=== PATIENT | female | born 1945 | race Caucasian/White ===

== ENCOUNTER 2020-11-30 08:19 | Inpatient (IN) ==
[2020-11-30] MEDS ORDERED: Ondansetron 4 MG/2 ML VIAL IVP ONE (08:25)
[2020-11-30] MEDS ORDERED: 0.9 % Sodium Chloride 500 ML IVC ONE (08:25)
[2020-11-30] MEDS ORDERED: Piperacillin/Tazobactam 3.375 GM in 0.9 % Sodium Chloride Mini Bag 100 ML IVPB ONE (08:27)
[2020-11-30 08:42] LABS: Bilirubin,Urine Small (Negative); Blood,Urine Moderate (Negative); Clarity,Urine Clear (Clear); Color,Urine Yellow (Yellow); Glucose,Urine (UA) Normal (Normal); Ketones,Urine >=160 mg/dL (Negative); Leukocyte Esterase,Urine Negative (Negative); Nitrite,Urine Negative (Negative); Protein,Urine 100 mg/dL (Neg-Trace); Specific Gravity,Urine >= 1.030 (1.010-1.025); Urobilinogen,Urine Normal (Normal)
[2020-11-30 08:49] LABS: Basophils # 0.1 K/mcL (0.0-0.2); Basophils % 0.5 %; Hematocrit 43.3 % (35.3-44.9); Hemoglobin 14.5 g/dL (11.5-15.4); Immature Granulocytes % 0.4 % (0-4); Lymphocytes # 0.9 K/mcL (0.6-4.6); Lymphocytes % 8.3 %; Mean Corpuscular HGB Conc 33.5 g/dL (31.6-35.5); Mean Corpuscular Hemoglobin 28.1 pg (28.0-33.3); Mean Corpuscular Volume 83.9 fL (83.0-100.0); Mean Platelet Volume 10.4 fL (9.4-12.4); Monocytes % 7.5 %; Neutrophils # 9.4 K/mcL (1.6-8.9); Platelet Count 230 K/mcL (140-400); Red Blood Count 5.16 M/mcL (3.82-4.97); Red Cell Distribution Width 14.1 % (11.5-14.5); Segmented Neutrophils % 83.3 %; White Blood Count 11.3 K/mcL (4.3-11.1)
[2020-11-30 08:51] LABS: WBC,Urine 0-3 per hpf (0-3)
[2020-11-30] MEDS ORDERED: Acetaminophen 325 MG TABLET PO ONE (08:51)
[2020-11-30 08:52] LABS: Bacteria,Urine Many per hpf (None-Few); Granular Casts,Urine Moderate per lpf (None Seen); Mucus,Urine Few per lpf (None-Few); Red Blood Cell Casts,Urine Few per lpf (None Seen)
[2020-11-30 08:53] LABS: Monocytes # 0.9 K/mcL (0.0-1.3)
[2020-11-30 08:53] LABS: Amphetamine Screen,Urine Negative ng/mL (Cutoff=1000); Barbiturate Screen,Urine Negative ng/mL (Cutoff=200); Benzodiazepines Screen,Urine Negative ng/mL (Cutoff=200); Cannabinoid Screen,Urine Positive ng/mL (Cutoff = 50); Cocaine Screen,Urine Negative ng/mL (Cutoff= 300); Opiate Screen,Urine Positive ng/mL (Cutoff=300); Phencyclidine Screen,Urine Negative ng/mL (Cutoff=25)
[2020-11-30 08:57] LABS: INR 1.4; Prothrombin Time 15.7 Seconds (9.4-12.1)
[2020-11-30 09:00] LABS: Activated Partial Thrombo Time 37.9 Seconds (26.0-36.0)
[2020-11-30 09:05] LABS: Alanine Aminotransferase 53 Units/L (7-52); Albumin 3.8 g/dL (3.5-5.7); Albumin/Globulin Ratio 0.9 (1.1-2.2); Alkaline Phosphatase 209 Units/L (34-104); Aspartate Amino Transferase 72 Units/L (13-39); BUN/Creatinine Ratio 14 (6-26); Bilirubin,Direct 0.4 mg/dL (0.0-0.2); Bilirubin,Indirect 0.6 mg/dL (0.0-1.0); Blood Urea Nitrogen 14 mg/dL (8-23); Carbon Dioxide 23 mEq/L (23-29); Chloride 101 mEq/L (98-107); Globulin 4.1 g/dL (2.4-3.5); Glucose 128 mg/dL (70-105); Osmolality,Calculated 288 (280-300); Potassium 3.1 mEq/L (3.5-5.1); Sodium 138 mEq/L (136-145); Total Protein 7.9 g/dL (6.4-8.9); eGFR For African Americans > 60 (> 60); eGFR For Non-African Americans 53 (> 60)
[2020-11-30 09:15] LABS: Troponin I 0.05 ng/mL (< 0.04)
[2020-11-30] MEDS: 0.9 % Sodium Chloride 1,000 ML IVC SCH ×2 (09:20→20:55)
[2020-11-30 10:22] LABS: ABG Base Excess -2 mEq/L (-2 to 3); ABG HCO3 20 mEq/L (21-27); ABG Oxygen Saturation 92 % (95-98); ABG PCO2 27 mmHg (35-45); ABG PH 7.47 pH Units (7.32-7.45); ABG PO2 57 mmHg (85-104); ABG TCO2 21 mEq/L (20-26)
[2020-11-30] MEDS ORDERED: *HR* HYDROcodone/Acet 5/325 mg TABLET PO ONE (10:24)
[2020-11-30] MEDS ORDERED: Isovue-370 500 ML BOTTLE IVP ONE (11:29)
[2020-11-30] MEDS ORDERED: MOM Conc 10 ML UD.LIQ PO PRN (11:34)
[2020-11-30] MEDS ORDERED: Naloxone 0.4 MG/ML INJ IVP PRN (11:34)
[2020-11-30] MEDS ORDERED: Mag Hydrox/Al Hydrox/Simeth 30 ML UDC PO PRN (11:34)
[2020-11-30] MEDS ORDERED: Ondansetron 4 MG/2 ML VIAL IVP PRN (11:34)
[2020-11-30] MEDS ORDERED: Ipratropium 1 PUFF INHALER IH PRN (13:58)
[2020-11-30 15:56] LABS: Adenovirus Not Detected (Not Detect); Coronavirus 229E Not Detected (Not Detect); Coronavirus HKU1 Not Detected (Not Detect); Coronavirus NL63 Not Detected (Not Detect); Coronavirus OC43 Not Detected (Not Detect); Human Metapneumovirus Not Detected (Not Detect); Human Rhinovirus/Enterovirus Not Detected (Not Detect); Influenza A Subtype 2009 H1 Not Detected (Not Detect); SARS-CoV-2 Not Detected (Not Detect)
[2020-11-30 15:57] LABS: Bordetella Pertussis Not Detected (Not Detect); Chlamydophila pneumoniae Not Detected (Not Detect); Influenza B Not Detected (Not Detect); Mycoplasma pneumoniae Not Detected (Not Detect); Parainfluenza Virus 1 Not Detected (Not Detect); Parainfluenza Virus 2 Not Detected (Not Detect); Parainfluenza Virus 3 Not Detected (Not Detect); Parainfluenza Virus 4 Not Detected (Not Detect); Respiratory Syncytial Virus Not Detected (Not Detect)
[2020-11-30] MEDS: Acetaminophen 325 MG TABLET PO PRN (16:45)
[2020-11-30] MEDS: Piperacillin/Tazobactam 3.375 GM in 0.9 % Sodium Chloride Mini Bag 100 ML IVPB SCH (16:48)
[2020-12-01 00:31] LABS: Basophils % 0.2 %; Immature Granulocytes % 0.5 % (0-4); Lymphocytes # 0.8 K/mcL (0.6-4.6); Lymphocytes % 9.1 %; Mean Corpuscular HGB Conc 33.3 g/dL (31.6-35.5); Mean Corpuscular Hemoglobin 28.2 pg (28.0-33.3); Mean Corpuscular Volume 84.5 fL (83.0-100.0); Mean Platelet Volume 10.2 fL (9.4-12.4); Monocytes # 0.6 K/mcL (0.0-1.3); Monocytes % 6.6 %; Neutrophils # 7.3 K/mcL (1.6-8.9); Platelet Count 188 K/mcL (140-400); Red Blood Count 4.97 M/mcL (3.82-4.97); Red Cell Distribution Width 14.4 % (11.5-14.5); Segmented Neutrophils % 83.6 %; White Blood Count 8.7 K/mcL (4.3-11.1)
[2020-12-01] MEDS: Piperacillin/Tazobactam 3.375 GM in 0.9 % Sodium Chloride Mini Bag 100 ML IVPB SCH ×4 (00:37→23:44)
[2020-12-01 00:52] LABS: BUN/Creatinine Ratio 11 (6-26); Blood Urea Nitrogen 11 mg/dL (8-23); Carbon Dioxide 23 mEq/L (23-29); Chloride 105 mEq/L (98-107); Glucose 111 mg/dL (70-105); Osmolality,Calculated 284 (280-300); Potassium 3.4 mEq/L (3.5-5.1); Sodium 137 mEq/L (136-145); eGFR For African Americans > 60 (> 60); eGFR For Non-African Americans 54 (> 60)
[2020-12-01] MEDS: 0.9 % Sodium Chloride 1,000 ML IVC SCH ×2 (05:09→16:07)
[2020-12-01] MEDS: Acetaminophen 325 MG TABLET PO PRN (07:44)
[2020-12-01] MEDS: Magnesium Oxide 400 MG TABLET PO SCH (07:46)
[2020-12-01] MEDS ORDERED: Potassium Chloride Elixir 20 MEQ/15 ML UDC PO ONE (09:32)
[2020-12-01] MEDS: *HR* HYDROcodone/Acet 10/325 mg TABLET PO PRN ×2 (09:38→16:23)
[2020-12-01] MEDS: Leptospermum Honey Paste 44 ML TUBE TP SCH (10:12)
[2020-12-02] MEDS: Acetaminophen 325 MG TABLET PO PRN ×2 (00:45→23:13)
[2020-12-02] MEDS: 0.9 % Sodium Chloride 1,000 ML IVC SCH ×3 (01:56→22:44)
[2020-12-02] MEDS: *HR* Enoxaparin 40 MG/0.4 ML SYRINGE SQ SCH (05:49)
[2020-12-02] MEDS: Magnesium Oxide 400 MG TABLET PO SCH (07:38)
[2020-12-02 08:00] LABS: Basophils % 0.3 %; Eosinophils % 0.1 %; Hematocrit 40.7 % (35.3-44.9); Hemoglobin 13.1 g/dL (11.5-15.4); Immature Granulocytes % 0.5 % (0-4); Lymphocytes % 12.3 %; Mean Corpuscular HGB Conc 32.2 g/dL (31.6-35.5); Mean Corpuscular Hemoglobin 27.7 pg (28.0-33.3); Mean Platelet Volume 11.2 fL (9.4-12.4); Monocytes # 0.4 K/mcL (0.0-1.3); Monocytes % 5.1 %; Neutrophils # 6.3 K/mcL (1.6-8.9); Platelet Count 194 K/mcL (140-400); Red Blood Count 4.73 M/mcL (3.82-4.97); Segmented Neutrophils % 81.7 %; White Blood Count 7.7 K/mcL (4.3-11.1)
[2020-12-02] MEDS: Piperacillin/Tazobactam 3.375 GM in 0.9 % Sodium Chloride Mini Bag 100 ML IVPB SCH ×3 (08:10→23:14)
[2020-12-02] MEDS: *HR* HYDROcodone/Acet 10/325 mg TABLET PO PRN (09:03)
[2020-12-02 09:13] LABS: BUN/Creatinine Ratio 13 (6-26); Blood Urea Nitrogen 11 mg/dL (8-23); Calcium 8.1 mg/dL (8.6-10.3); Carbon Dioxide 25 mEq/L (23-29); Chloride 104 mEq/L (98-107); Glucose 70 mg/dL (70-105); Osmolality,Calculated 282 (280-300); Potassium 3.3 mEq/L (3.5-5.1); Sodium 137 mEq/L (136-145); eGFR For African Americans > 60 (> 60); eGFR For Non-African Americans > 60 (> 60)
[2020-12-02] MEDS ORDERED: Pregabalin 50 MG CAPSULE PO SCH (09:53)
[2020-12-02] MEDS ORDERED: Potassium Chloride Elixir 20 MEQ/15 ML UDC PO ONE (10:02)
[2020-12-02] MEDS: Leptospermum Honey Paste 44 ML TUBE TP SCH (10:03)
[2020-12-02] MEDS ORDERED: tiZANidine 4 MG TABLET PO SCH (10:45)
[2020-12-02] MEDS: Pregabalin 50 MG CAPSULE PO SCH (22:46)
[2020-12-02] MEDS: tiZANidine 4 MG TABLET PO SCH (22:47)
[2020-12-03] MEDS: *HR* Enoxaparin 40 MG/0.4 ML SYRINGE SQ SCH (06:23)
[2020-12-03 06:37] LABS: BUN/Creatinine Ratio 12 (6-26); Blood Urea Nitrogen 9 mg/dL (8-23); Carbon Dioxide 20 mEq/L (23-29); Chloride 107 mEq/L (98-107); Glucose 85 mg/dL (70-105); Osmolality,Calculated 282 (280-300); Potassium 3.6 mEq/L (3.5-5.1); Sodium 137 mEq/L (136-145); eGFR For African Americans > 60 (> 60); eGFR For Non-African Americans > 60 (> 60)
[2020-12-03] MEDS: Piperacillin/Tazobactam 3.375 GM in 0.9 % Sodium Chloride Mini Bag 100 ML IVPB SCH ×3 (08:11→23:13)
[2020-12-03] MEDS: Magnesium Oxide 400 MG TABLET PO SCH (08:15)
[2020-12-03] MEDS: *HR* HYDROcodone/Acet 10/325 mg TABLET PO PRN ×3 (08:15→23:15)
[2020-12-03] MEDS: Pregabalin 50 MG CAPSULE PO SCH ×2 (08:15→20:22)
[2020-12-03] MEDS: Leptospermum Honey Paste 44 ML TUBE TP SCH (08:16)
[2020-12-03] MEDS ORDERED: Benzonatate 100 MG CAPSULE PO PRN (09:49)
[2020-12-03 11:09] LABS: Basophils % 0.5 %; Eosinophils % 0.2 %; Hematocrit 37.5 % (35.3-44.9); Hemoglobin 12.6 g/dL (11.5-15.4); Immature Granulocytes % 1.1 % (0-4); Lymphocytes # 0.5 K/mcL (0.6-4.6); Lymphocytes % 8.3 %; Mean Corpuscular HGB Conc 33.6 g/dL (31.6-35.5); Mean Corpuscular Hemoglobin 28.1 pg (28.0-33.3); Mean Corpuscular Volume 83.5 fL (83.0-100.0); Mean Platelet Volume 10.5 fL (9.4-12.4); Monocytes # 0.4 K/mcL (0.0-1.3); Monocytes % 5.7 %; Neutrophils # 5.5 K/mcL (1.6-8.9); Platelet Count 211 K/mcL (140-400); Red Blood Count 4.49 M/mcL (3.82-4.97); Red Cell Distribution Width 14.9 % (11.5-14.5); Segmented Neutrophils % 84.2 %; White Blood Count 6.5 K/mcL (4.3-11.1)
[2020-12-03] MEDS: Budesonide/Formoterol 160/4.5 1 PUFF INH IH SCH ×2 (11:36→22:02)
[2020-12-03] MEDS: 0.9 % Sodium Chloride 1,000 ML IVC SCH ×2 (13:05→23:13)
[2020-12-03] MEDS: Acetaminophen 325 MG TABLET PO PRN (13:13)
[2020-12-03] MEDS: Lactobacillus 1 EACH CAP.SPRINK PO SCH (20:22)
[2020-12-03] MEDS: tiZANidine 4 MG TABLET PO SCH (20:22)
[2020-12-03] MEDS ORDERED: tiZANidine 4 MG TABLET PO SCH (21:00)
[2020-12-04] MEDS: *HR* Enoxaparin 40 MG/0.4 ML SYRINGE SQ SCH (05:29)
[2020-12-04 05:42] LABS: Basophils % 0.8 %; Eosinophils # 0.1 K/mcL (0.0-0.6); Eosinophils % 1.9 %; Hematocrit 36.9 % (35.3-44.9); Hemoglobin 12.1 g/dL (11.5-15.4); Immature Granulocytes % 0.8 % (0-4); Lymphocytes # 0.9 K/mcL (0.6-4.6); Mean Corpuscular HGB Conc 32.8 g/dL (31.6-35.5); Mean Corpuscular Hemoglobin 27.8 pg (28.0-33.3); Mean Corpuscular Volume 84.8 fL (83.0-100.0); Mean Platelet Volume 10.6 fL (9.4-12.4); Monocytes # 0.4 K/mcL (0.0-1.3); Monocytes % 7.1 %; Neutrophils # 3.8 K/mcL (1.6-8.9); Platelet Count 230 K/mcL (140-400); Red Blood Count 4.35 M/mcL (3.82-4.97); Red Cell Distribution Width 14.9 % (11.5-14.5); Segmented Neutrophils % 72.4 %; White Blood Count 5.2 K/mcL (4.3-11.1)
[2020-12-04 07:05] VITALS: BP 133/76; PULSE 66; RESP 18; TEMP 98.4; O2SAT 95
[2020-12-04] MEDS: Piperacillin/Tazobactam 3.375 GM in 0.9 % Sodium Chloride Mini Bag 100 ML IVPB SCH (08:39)
[2020-12-04] MEDS: Lactobacillus 1 EACH CAP.SPRINK PO SCH (08:40)
[2020-12-04] MEDS: Pregabalin 50 MG CAPSULE PO SCH (08:41)
[2020-12-04] MEDS: Magnesium Oxide 400 MG TABLET PO SCH (08:41)
[2020-12-04] MEDS: Budesonide/Formoterol 160/4.5 1 PUFF INH IH SCH (08:49)
[2020-12-04] MEDS: Leptospermum Honey Paste 44 ML TUBE TP SCH (09:01)
[2020-12-04] MEDS: *HR* HYDROcodone/Acet 10/325 mg TABLET PO PRN (10:42)
[2020-12-04] MEDS ORDERED: Cefdinir 300 MG CAPSULE PO SCH (21:00)
== END 2020-12-04 15:57 | DRG 193 ==
LOC: INPPIK 08:19 → EMEROOPIK 08:19 → INPPIK 12:09
PROVIDERS: ADMIT Internal Medicine; ATTEND Internal Medicine

== ENCOUNTER 2020-12-04 11:37 | Inpatient (IN) ==
[2020-12-04] MEDS ORDERED: Acetaminophen 325 MG TABLET PO PRN (12:03)
[2020-12-04] MEDS ORDERED: Benzonatate 100 MG CAPSULE PO PRN (12:05)
[2020-12-04] MEDS ORDERED: Mag Hydrox/Al Hydrox/Simeth 30 ML UDC PO PRN (12:11)
[2020-12-04] MEDS ORDERED: MOM Conc 10 ML UD.LIQ PO PRN (12:16)
[2020-12-04] MEDS ORDERED: Naloxone 0.4 MG/ML INJ IVP PRN (12:17)
[2020-12-04] MEDS ORDERED: Ondansetron 4 MG/2 ML VIAL IVP PRN (12:18)
[2020-12-04] MEDS: Pregabalin 50 MG CAPSULE PO SCH ×2 (17:40→19:49)
[2020-12-04] MEDS ORDERED: Saline Nasal Spray 44 ML BOTTLE NS PRN (18:52)
[2020-12-04] MEDS: Loratadine 10 MG TABLET PO SCH (19:49)
[2020-12-04] MEDS: Cefdinir 300 MG CAPSULE PO SCH (19:49)
[2020-12-04] MEDS: Lactobacillus 1 EACH CAP.SPRINK PO SCH (19:49)
[2020-12-04] MEDS: tiZANidine 4 MG TABLET PO SCH (19:49)
[2020-12-04] MEDS: *HR* HYDROcodone/Acet 10/325 mg TABLET PO PRN (19:49)
[2020-12-04] MEDS: Budesonide/Formoterol 160/4.5 1 PUFF INH IH SCH (22:31)
[2020-12-05] MEDS: *HR* HYDROcodone/Acet 10/325 mg TABLET PO PRN ×2 (04:42→16:58)
[2020-12-05] MEDS: *HR* Enoxaparin 40 MG/0.4 ML SYRINGE SQ SCH (04:42)
[2020-12-05] MEDS: Cefdinir 300 MG CAPSULE PO SCH ×2 (07:51→21:29)
[2020-12-05] MEDS: Lactobacillus 1 EACH CAP.SPRINK PO SCH ×2 (07:51→21:29)
[2020-12-05] MEDS: Pregabalin 50 MG CAPSULE PO SCH ×3 (07:52→21:29)
[2020-12-05] MEDS ORDERED: OLMESARTAN MEDOXOMIL 5 MG PO SCH (09:00)
[2020-12-05] MEDS: Budesonide/Formoterol 160/4.5 1 PUFF INH IH SCH ×2 (10:31→21:23)
[2020-12-05] MEDS: Magnesium Oxide 400 MG TABLET PO SCH (12:16)
[2020-12-05] MEDS: Cholecalciferol (D-3) 1,000 UNIT (25MCG) TABLET PO SCH (12:16)
[2020-12-05] MEDS: Vitamin E 200 UNIT (90MG) CAPSULE PO SCH (12:16)
[2020-12-05] MEDS: Loratadine 10 MG TABLET PO SCH (21:29)
[2020-12-05] MEDS: tiZANidine 4 MG TABLET PO SCH (21:29)
[2020-12-06] MEDS: *HR* Enoxaparin 40 MG/0.4 ML SYRINGE SQ SCH (05:23)
[2020-12-06] MEDS: Lactobacillus 1 EACH CAP.SPRINK PO SCH ×2 (07:44→19:47)
[2020-12-06] MEDS: Magnesium Oxide 400 MG TABLET PO SCH (07:44)
[2020-12-06] MEDS: Pregabalin 50 MG CAPSULE PO SCH ×3 (07:45→19:47)
[2020-12-06] MEDS: Vitamin E 200 UNIT (90MG) CAPSULE PO SCH (07:45)
[2020-12-06] MEDS: Cefdinir 300 MG CAPSULE PO SCH ×2 (07:45→19:46)
[2020-12-06] MEDS: Cholecalciferol (D-3) 1,000 UNIT (25MCG) TABLET PO SCH (07:45)
[2020-12-06] MEDS: Budesonide/Formoterol 160/4.5 1 PUFF INH IH SCH ×2 (09:20→21:12)
[2020-12-06] MEDS: *HR* HYDROcodone/Acet 10/325 mg TABLET PO PRN ×2 (10:17→17:27)
[2020-12-06] MEDS: Leptospermum Honey Gel 44 ML TUBE TP SCH (15:11)
[2020-12-06] MEDS: Loratadine 10 MG TABLET PO SCH (19:46)
[2020-12-06] MEDS: tiZANidine 4 MG TABLET PO SCH (19:47)
[2020-12-07] MEDS: *HR* HYDROcodone/Acet 10/325 mg TABLET PO PRN ×3 (03:48→17:00)
[2020-12-07] MEDS: *HR* Enoxaparin 40 MG/0.4 ML SYRINGE SQ SCH (04:55)
[2020-12-07] MEDS: Cholecalciferol (D-3) 1,000 UNIT (25MCG) TABLET PO SCH (07:29)
[2020-12-07] MEDS: Vitamin E 200 UNIT (90MG) CAPSULE PO SCH (07:29)
[2020-12-07] MEDS: Cefdinir 300 MG CAPSULE PO SCH ×2 (07:29→21:41)
[2020-12-07] MEDS: Pregabalin 50 MG CAPSULE PO SCH ×3 (07:30→21:41)
[2020-12-07] MEDS: Lactobacillus 1 EACH CAP.SPRINK PO SCH ×2 (07:30→21:41)
[2020-12-07] MEDS: Magnesium Oxide 400 MG TABLET PO SCH (07:30)
[2020-12-07] MEDS: Budesonide/Formoterol 160/4.5 1 PUFF INH IH SCH ×2 (10:40→21:32)
[2020-12-07] MEDS: Leptospermum Honey Gel 44 ML TUBE TP SCH (14:53)
[2020-12-07] MEDS: tiZANidine 4 MG TABLET PO SCH (21:41)
[2020-12-07] MEDS: Loratadine 10 MG TABLET PO SCH (21:41)
[2020-12-08] MEDS: *HR* HYDROcodone/Acet 10/325 mg TABLET PO PRN ×2 (02:47→09:34)
[2020-12-08] MEDS: *HR* Enoxaparin 40 MG/0.4 ML SYRINGE SQ SCH (05:44)
[2020-12-08 07:39] VITALS: BP 151/81; PULSE 69; RESP 18; TEMP 97.6
[2020-12-08] MEDS: Budesonide/Formoterol 160/4.5 1 PUFF INH IH SCH (09:29)
[2020-12-08 09:33] VITALS: O2SAT 93
[2020-12-08] MEDS: Vitamin E 200 UNIT (90MG) CAPSULE PO SCH (09:33)
[2020-12-08] MEDS: Pregabalin 50 MG CAPSULE PO SCH ×2 (09:33→15:58)
[2020-12-08] MEDS: Cefdinir 300 MG CAPSULE PO SCH (09:34)
[2020-12-08] MEDS: Lactobacillus 1 EACH CAP.SPRINK PO SCH (09:34)
[2020-12-08] MEDS: Cholecalciferol (D-3) 1,000 UNIT (25MCG) TABLET PO SCH (09:34)
[2020-12-08] MEDS: Magnesium Oxide 400 MG TABLET PO SCH (09:35)
[2020-12-08] MEDS: Leptospermum Honey Gel 44 ML TUBE TP SCH (09:35)
== END 2020-12-08 16:05 | disposition home health service (06) | DRG 945 ==
LOC: INPPIK 16:12
PROVIDERS: ADMIT Internal Medicine; ATTEND Internal Medicine